=== PATIENT | female | born 1975 | race Caucasian/White ===

== ENCOUNTER → 2017-04-08 | Outpatient (CLI) | payer OTHER ==
[~2017-04-08] MED LIST: BARIUM SUSPENSION 2.1% (VANILLA SILQ) 450 ML PO ONE; CATHETER FLUSH 10 ML SYR IV PRN; IOHEXOL 350 MG/ML 100 ML (OMNIPAQUE 350) VIAL IV ONE; NS 100 ML (IVPB) BAG IV ONE
--- NOTE | 2017-04-08 14:55 | Diagnostic Imaging Report ---
PROCEDURE: CT abdomen and pelvis with contrast. TECHNIQUE: Multiple contiguous axial images were obtained through the abdomen and pelvis after administration of intravenous contrast. INDICATION: Palpable right lower quadrant mass for three months. COMPARISON: None. DISCUSSION: The visualized lung bases are unremarkable. Normal heart size. No pleural or pericardial fluid. The gallbladder, liver, pancreas, spleen, stomach, adrenal glands, and kidneys are unremarkable. There is a large complex cystic mass within the right lower quadrant which is statistically ovarian in nature. Overall, the mass measures 9.4 cm AP by 13.6 cm transverse by 13.5 cm craniocaudal. There are several loculated appearing components of the mass. There is an additional complex lesion centrally within the medial portion of this mass, which contains fat and bone. 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 Whether there has been malignant degeneration are not is indeterminate by CT. Teratoma component measures 3.7 x 4.2 x 5.9 cm. The left ovary is also markedly enlarged measuring 5.5 x 4.4 x 6.5 cm and contains multiple cystic components, indeterminate. The uterus is grossly unremarkable. At a minimum, recommend surgical consultation. Further diagnostic evaluation could be performed for contrast enhanced pelvic MRI as clinically indicated. No peritoneal implants are identified. Small 1 cm splenule certain incidentally noted. No ascites or pathologically enlarged lymph nodes identified. The large and small bowel loops appear within normal limits. The abdominal aorta is normal in caliber. No acute osseous abnormality identified. IMPRESSION: 1. 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 Recommend surgical consultation. 2. Abnormal appearing left ovary is enlarged and contains multiple cysts. This could be secondary to underlying normal follicular activity though further evaluation with pelvic ultrasound or MRI could be considered prior to surgery. Dictated by: Dictated on workstation # [id number]
== END ==
LOC: RAD 12:46
PROVIDERS: ATTEND Nurse Practitioner Family
DX: R19.03 Right lower quadrant abdominal swelling, mass and lump (principal); N83.202 Unspecified ovarian cyst, left side
CPT/HCPCS: 74177

== ENCOUNTER → 2017-04-15 | Outpatient (CLI) | payer OTHER ==
--- NOTE | 2017-04-15 12:28 | Diagnostic Imaging Report ---
EXAMINATION: Transabdominal and transvaginal pelvic ultrasound. INDICATION: Right adnexal mass seen on CT scan. Correlation CT of 04/08/17. FINDINGS: The uterus is 10.5 x 6.9 x 4.9 CM. The endometrial stripe is 1.5 CM in thickness. There is a right adnexal mass measuring 12.7 x 10.8 x 13.4 cm with largely cystic components. This is associated with septations. Due to the large size of the lesion deeper areas of the mass are not well evaluated. The left adnexa demonstrates a 6.5 x 7.9 x 4.7 cm complex mass with multiple cystic and probably heterogenous components surrounding the vascularity seen with color Doppler could be related to remaining ovarian tissue. A solid component is not entirely excluded. IMPRESSION: Bilateral adnexal masses larger on the right side with significant cystic components. Based on the CT findings the right adnexal mass could be a teratoma. The presence of large cystic components and some areas of internal vascularity is atypical. Immature or malignant teratoma cannot be ruled out. The left adnexal complex mass is probably a cystic ovarian neoplasm as well. The findings were discussed with Dr. Herbert by phone at time of dictation. Dictated by: Dictated on workstation # [id number]
== END | disposition home or self-care (01) ==
LOC: RAD 09:52
PROVIDERS: ATTEND Obstetrics & Gynecology
DX: N83.292 Other ovarian cyst, left side (principal); R93.8 Abnormal findings on diagnostic imaging of other specified body structures
CPT/HCPCS: 76830; 76856